=== PATIENT | male | born 1995 | race African-American/Black ===

== ENCOUNTER 2016-09-25 16:27 | Emergency (ER) | payer OTHER ==
[~2016-09-25] VITALS: Ht 175.3 cm; Wt 81.6 kg
[2016-09-25 16:30] VITALS: BP 131/86
--- NOTE | 2016-09-25 16:59 | ED UPPER/LOWER EXTREMITY COMPL ---
History of Present Illness General Chief Complaint: Hand or Wrist Injury Stated Complaint: LEFT HAND INJURY Source: patient Exam Limitations: no limitations Vital Signs & Intake/Output Vital Signs & Intake/Output Vital Signs Date Time Temp Pulse Resp B/P B/P Pulse O2 O2 Flow FiO2 Mean Ox Delivery Rate 09/25 1730 Room Air 09/25 1630 98.2 89 15 131/86 98 Room Air Room Air Allergies Coded Allergies: shellfish derived (Severe, SCRATCHY THROAT 09/25/16) Reconcile Medications No Known Home Medications Triage Note: PT TO ED FOR C/C OF ?BROKEN THIRD FINGER ON L HAND. PT SMASHED IT BETWEEN TWO WOODEN LOGS YESTERDAY, APPEARS SWOLLEN AND BRUISED IN TRIAGE. ABLE TO MOVE FINGER IN TRIAGE. Triage Nurses Notes Reviewed? yes Onset: Abrupt Duration: constant Timing: recent history Severity: moderate Severity Numbers: 5 HPI: Patient is a 21-year-old male since emergency room with concerns of a crush injury that occurred yesterday in which he is describing a heavy is aware that landed on the distal aspect of his left middle finger resulting in pain, pain continued today and now is complaining of swelling and mild paresthesia. Patient tried icing and ibuprofen with minimal relief of symptoms. Skin is still intact no nail involvement. Patient is right arm dominant (NURY SANCHEZ) Past History Travel History Traveled to [place] past 21 day No Medical History Any Pertinent Medical History? none Neurological: NONE EENT: NONE Cardiovascular: NONE Respiratory: NONE Gastrointestinal: NONE Hepatic: NONE Renal: NONE Musculoskeletal: NONE Psychiatric: NONE Endocrine: NONE Blood Disorders: NONE Cancer(s): NONE BUSINESS ADMINISTRATION TEACHER/Reproductive: NONE Surgical History Surgical History: non-contributory, N Psychosocial History What is your primary language Slovenian Tobacco Use: Never used ETOH Use: occasional use Illicit Drug Use: marijuana Family History Hx Contributory? No (NURY SANCHEZ) Review of Systems Review of Systems Constitutional: Reports: no symptoms. EENTM: Reports: no symptoms. Respiratory: Reports: no symptoms. Cardiovascular: Reports: no symptoms. Gastrointestinal/Abdominal: Reports: no symptoms. Genitourinary: Reports: no symptoms. Musculoskeletal: Reports: see HPI, joint pain. Skin: Reports: no symptoms. Neurological/Psychological: Reports: no symptoms. Hematologic/Endocrine: Reports: no symptoms. Immunological: Reports: no symptoms. All Other Systems: Reviewed and Negative (NURY SANCHEZ) Physical Exam Physical Exam General Appearance: no apparent distress, alert Neurologic/Tendon: normal sensation, normal motor functions, normal tendon functions, responds to pain, no evidence tendon injury, no pulse deficit Skin: intact, normal color, warm/dry Comments: Well-developed well-nourished no apparent distress. HEENT: Atraumatic, extraocular motion intact Neck: Supple, no lymphadenopathy Back: Nontender Respiratory: No respiratory distress Neuro: Alert and oriented x3 Psych: Mood affect normal, normal memory normal judgment. Diagram Hands Front 1) Noted swelling and point tenderness decreased active range of motion noted no trauma of the nail dermatomes intact capillary refill less than 2 seconds (NURY SANCHEZ) Progress Differential Diagnosis: arterial insufficiency, compartment syndrome, contusion, dislocation, DVT, fracture, gout, septic arthritis, sprain, tendon injury Plan of Care: Orders Procedure Date/time Status XRY-HAND, 3 View LEFT 09/25 1634 Active Current Medications Sig/Tom Start time Last Medication Dose Stop Time Status Admin Ibuprofen 400 MG ONCE ONE 09/25 1644 UNVr 09/25 (Motrin) 09/25 1645 1635 Patient has concerns of distal tuft fracture of left third digit. I applied a metal finger splint to the left third digit of hand with tape. Patient tolerated well pre-and post-neurovascular was intact (NURY SANCHEZ) Diagnostic Imaging: Viewed by Me: Radiology Read. Radiology Impression: acute abnormality, fracture Comments: PATIENT: AUSTIN GASCA PRESENT AGE: 21 PATIENT ACCOUNT NO: [id number] : 93 LOCATION: [facility] ORDERING PHYSICIAN: NURY MUNGUIA SERVICE DATE: 09/25/16 EXAM TYPE: RAD - XRY-HAND, LEFT EXAMINATION: XR HAND, LEFT CLINICAL INFORMATION: Pain, swelling, status post trauma COMPARISON: None TECHNIQUE: AP, lateral, and oblique views of the left hand. FINDINGS: There is a comminuted fracture of the distal tuft of the third distal phalanx. No intra-articular extension. No dislocation. Otherwise normal mineralization and alignment. IMPRESSION: Comminuted fracture of the distal tuft of the third distal phalanx. DICTATED BY: HOLLY KAUFFMAN MD DATE/TIME DICTATED:09/25/161719 SUPERVISOR CORE SHOP:MINISTERIO (NURY SANCHEZ) Departure Departure Disposition: HOME OR SELF CARE Condition: Stable Clinical Impression Primary Impression: Closed fracture of tuft of distal phalanx of finger Referrals: PATIENT HAS NO PRIMARY CARE DR (PCP/Family) YAZMIN DAVIS,CHELITA Shearer Additional Instructions: As discussed begin to ice the area directly 20 minutes every 2 hours. Begin [id number] ibuprofen for pain and inflammation, begin using the splint and use this for approximately 2 weeks for stability and support and until you are symptom-free of pain. If symptoms worsen return to emergency room. Follow-up with orthopedic Dr. ARCE in one week if no better. Departure Forms: Customer Survey General Discharge Information Prescriptions: Current Visit Scripts No Known Home Medications (NURY SANCHEZ) PA/SPECIALTIES OPERATOR Co-Sign Statement Statement: ED Attending supervision documentation- [] I saw and evaluated the patient. I have also reviewed all the pertinent lab results and diagnostic results. I agree with the findings and the plan of care as documented in the PA's/SPECIALTIES OPERATOR's documentation. [X] I have reviewed the ED Record and agree with the PA's/SPECIALTIES OPERATOR's documentation. [] Additions or exceptions (if any) to the PAs/SPECIALTIES OPERATOR's note and plan are summarized below: [] (SAUL DAVIS,ROMA)
--- NOTE | 2016-09-25 17:25 | RADIOLOGY REPORT ---
EXAMINATION: XR HAND, LEFT CLINICAL INFORMATION: Pain, swelling, status post trauma COMPARISON: None TECHNIQUE: AP, lateral, and oblique views of the left hand. FINDINGS: There is a comminuted fracture of the distal tuft of the third distal phalanx. No intra-articular extension. No dislocation. Otherwise normal mineralization and alignment. IMPRESSION: Comminuted fracture of the distal tuft of the third distal phalanx.
== END 2016-09-25 17:54 ==
LOC: ERH 16:27
DX: S62.633A Displaced fracture of distal phalanx of left middle finger, initial encounter for closed fracture (principal); W23.0XXA Caught, crushed, jammed, or pinched between moving objects, initial encounter; Y93.9 Activity, unspecified; Y92.9 Unspecified place or not applicable
CPT/HCPCS: 73130-LT